=== PATIENT | female | born 1950 | race Caucasian/White ===

== ENCOUNTER 2018-09-16 04:59 | Inpatient (IN) ==
--- NOTE | 2018-08-21 15:50 | PAT Medication Instructions ---
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) STOP taking 2 weeks before surgery (or as soon as possible if surgery is within 2 weeks) Rasheed Oil 1 tab PO QAM DO NOT take the morning of surgery B-complex with vitamin C [Super B 1 tab PO QAM cholecalciferol (vitamin D3) 1,000 unit PO QAM ferrous sulfate, dried [iron] 159 mg PO QAM magnesium 250 mg PO QAM multivitamin 1 tab PO QAM Take morning of surgery With a small sip of water, OTHERWISE NOTHING TO EAT OR DRINK AFTER MIDNIGHT: Thyroid Stim 1 tab PO QAM thyroid (pork) [Quinton Thyroid] 90 mg PO QAM Other Notes If you have any questions please call us at [phone] or [phone] or [phone] or [phone]
--- NOTE | 2018-08-24 07:52 | History & Physical Report ---
Date of Service August 24, 2018 Date of Surgery: 09-16-18 Assessment & Plan (1) Bilateral primary osteoarthritis of knee: Risks and benefits of procedure discussed in detail today, Gely has failed conservative measures and would like to proceed with Bilateral total knee replacements on 09-16-18 @ [facility] as scheduled. will obtain cardiac clearance prior to surgery as well as obtain PATs at [facility]. She will d/c her Eliquis 3 days prior to surgery and resume ASHOK post operatively. She will follow up 2 weeks post op for routine post-operative care and xray, sooner if having any problems. will make arrangements for HHPT at the time of discharge. History of Present Illness Chief Complaint: bilateral knee pain Primary Care Provider: Aleah Segura Ms White is a 67 year old female who complains of bilateral knee pain, is here for pre-op evaluation prior to bilateral total knee replacements scheduled for at [facility] by Dr Elmore. She states her symptoms are chronic and non-traumatic and equal on both sides. she admits to pain, decreased range of motion and intermittent swelling. Her symptoms occur constantly with intermittent worsening. Currently the patient states that the symptoms are moderate-severe. The pain is described as aching, discomforting and throbbing. She states that her symptoms are aggravated by ascending stairs, daily activities including walking and standing as well as first steps while awake. Gely states that the symptoms are relieved by no specific activity. Her current pain is 4/10 bilaterally and 8/10 at its worst. She is experiencing decreased mobility, joint pain, limping, instability, loss of motion, pain, pain after activity and stiffness. Pt. is on Eliquis therapy which limits her NSAID use for pain. She has been treated with previous physical therapy, as well as has received previous Cortisone injection in the past and viscosupplementation, most recently in July of 2017. Allergies Allergy/AdvReac Type Severity Reaction Status Date / Time Sulfa (Sulfonamide AdvReac YEAST Verified 08/17/18 09:00 Antibiotics) INFECTION Home Medications Home Medications Medication Instructions Recorded Confirmed Type B-complex with vitamin C [Super B 1 tab PO QAM 08/17/18 08/17/18 History Complex-Vitamin C] Rasheed Oil 1 tab PO QAM 08/17/18 History Thyroid Stim 1 tab PO QAM 08/17/18 History apixaban [Eliquis] 5 mg PO BID 08/17/18 08/17/18 History cholecalciferol (vitamin D3) 1,000 unit PO QAM 08/17/18 08/17/18 History [Vitamin D3] ferrous sulfate, dried [iron] 159 mg PO QAM 08/17/18 08/17/18 History magnesium 250 mg PO QAM 08/17/18 08/17/18 History multivitamin 1 tab PO QAM 08/17/18 08/17/18 History thyroid (pork) [[place] Thyroid] 90 mg PO QAM 08/17/18 08/17/18 History Past Med/Surg History Medical History Asthma CONTROLLED Atrial fibrillation PAROXYSMAL Hypothyroidism Osteoarthritis Pulmonary HTN "MILD" PER 12/2017 ECHO (PASP 43-48MMHG) Valvular heart disease AVR (2014), MVR (2014), TV ANNULOPLASTY (2014) Surgical History History of heart valve replacement AVR (2014), MVR (2014), TV ANNULOPLASTY (2014); MOST RECENT ECHO 12/2017 History of laparoscopy 2/2 ENDOMETRIOSIS History of lumpectomy "BENIGN" History of tonsillectomy Family History Mother High cholesterol Diabetes Heart attack Social History Current Living Situation: Spouse Other Information That Helps Us Care for You: No Feels Safe at Home: Yes Safety Concerns: Feels Safe At This Time Smoking Status: Never smoker Do You Dip or Chew Tobacco: No Hx Alcohol Use: Yes Alcohol type: other Alcohol Intake Frequency: holidays/ special occasions only Hx Substance Use: No Beliefs That Will Affect Care: None Preferred Language: Turkish Communication Ability: Effective 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 Review of Systems All systems reviewed & are unremarkable except as noted in HPI & below Constitutional: no fever, no chills, no sweats and no fatigue Respiratory: no cough, no dyspnea and no hemoptysis Cardiovascular: no chest pain, no dyspnea and no orthopnea Musculoskeletal: as per Subjective / HPI Integumentary: no rash and no lesions Endocrine: no fatigue Physical Exam 2 Vital Signs (Past 24 Hours): Ht: 5ft 6 inches Wt: 62.6 kg BP: 134/60 Pulse: 90 Constitutional: WD/WN, vitals as above no acute distress Respiratory: normal respiratory effort, lungs clear to auscultation no respiratory distress and does not use accessory muscles Cardiovascular: irregularly irregular rhythm, Grade II/ systolic ejection murmur Gastrointestinal (Abdomen): normal bowel sounds, soft, nontender, no hepatosplenomegaly Musculoskeletal: Bilateral knee Physical exam Overall patient has varus alignment bilaterally, there is no atrophy or ecchymosis noted no erythema or warmth, she does have +1 suprapatellar effusion in both of her knees, she has tenderness to both medial compartments bilaterally. negative patellar apprehension, she does have crepitation noted to both knees with active range of motion. both knees are stable to valgus and varus stress, americo negative, posterior drawer negative. Range of motion right knee 0/5/115, left knee 0/3/115. her lower extremities are neurovascularly intact, calf soft and non tender, DP pulse +2 bilaterally. Results & Data Diagnostic Findings Bilateral Knee X-ray dated 08/04/18 bilateral knee 4 view series confirm advanced degenerative changes to both of her knees, greatest medial compartments and patellofemoral joints overall varus alignment, Xrays showing joint space narrowing, osteophyte formation and subchondral sclerosis to her medial compartments. no acute bony pathology noted , no loose bodies noted.
--- NOTE | 2018-08-24 09:41 | Anesthesiology Consultation ---
Date of Service August 24, 2018 Assessment & Plan (1) Encounter for pre-operative examination: Plan: - Cardio= 08/18/18= "low to intermediate risk for OR.. she will need to be off eliquis for three days prior to OR." Chart Review Chart Review: Acceptable Risk for Surgery and Patient seen in Pre Admission Testing Teaching & Discussion Pre-Anesthesia Teaching/Discussion Notes: Instructed NPO after midnight before surgery,except medications with 15 cc of water. Medication instructions provided according to the PAT guidelines. History Surgery Operation Date: 09/16/18 09:40 Proposed Procedures p Bilateral Total Knee Arthroplasty - Harris Elmore DO Height/Weight Height: 5 ft 6 in Weight: 61.6 kg Allergies Allergy/AdvReac Type Severity Reaction Status Date / Time Sulfa (Sulfonamide AdvReac YEAST Verified 08/17/18 09:00 Antibiotics) INFECTION Medications Home Medications Medication Instructions Recorded Confirmed Last Taken B-complex with vitamin C [Super B 1 tab PO QAM 08/17/18 08/17/18 Unknown Complex-Vitamin C] Rasheed Oil 1 tab PO QAM 08/17/18 Unknown Thyroid Stim 1 tab PO QAM 08/17/18 Unknown apixaban [Eliquis] 5 mg PO BID 08/17/18 08/17/18 Unknown cholecalciferol (vitamin D3) 1,000 unit PO QAM 08/17/18 08/17/18 Unknown [Vitamin D3] ferrous sulfate, dried [iron] 159 mg PO QAM 08/17/18 08/17/18 Unknown magnesium 250 mg PO QAM 08/17/18 08/17/18 Unknown multivitamin 1 tab PO QAM 08/17/18 08/17/18 Unknown thyroid (pork) [Rind[place] Thyroid] 90 mg PO QAM 08/17/18 08/17/18 Unknown Past Medical History Medical History Asthma CONTROLLED Atrial fibrillation PAROXYSMAL History of blood transfusion Hypothyroidism Osteoarthritis Pulmonary HTN "MILD" PER 12/2017 ECHO (PASP 43-48MMHG) Valvular heart disease AVR (2014), MVR (2014), TV ANNULOPLASTY (2014) Past Family History Family History Mother High cholesterol Diabetes Heart attack Past Surgical History Surgical History History of heart valve replacement AVR (2014), MVR (2014), TV ANNULOPLASTY (2014); MOST RECENT ECHO 12/2017 History of laparoscopy 2/2 ENDOMETRIOSIS History of lumpectomy "BENIGN" History of tonsillectomy Past Anesthesia History No Hx of Anesthesia Complications and No Family Hx of Anesthesia Complications History of PONV No Motion Sickness Screening History of Motion Sickness: No Social History Smoking Status: Never smoker Do You Dip or Chew Tobacco: No Hx Alcohol Use: Yes Alcohol type: other alcohol intake frequency: holidays/special occasions only Hx Substance Use: No substance use type: does not use Exercise / Class Metabolic Activity III < 4 Walking/Shop/Light housework Review of Systems URI symptoms improving. Patient denies chest pain, shortness of breath, cough, wheezing. Physical Exam Vital Signs VITALS BP 108/73 P 98 TEMP 97.8 SP02 98%RA RESP 18 PHYSICAL Small chin. Full neck and c-spine range of motion. Full TMJ range of motion. TMD 2.5 finger breaths Mallampati Score 1 Dentition: intact, upper front caps Lungs: clear throughout to auscultation Cardiac: regular rate and rhythm, III/ systolic murmur Spine: normal Carotid arteries: negative bruit Extremities: no edema Testing Electrocardiogram Date: 08/18/18 A. fib with normal mean ventricular response at 97bpm. Chest X-Ray Date: 08/24/18 There are postsurgical changes of midline sternotomy and valvular replacement. The patient is mildly hyperinflated. Echocardiogram Date: 12/30/17 No RWMA. EF 50-55%. Mild PI. Mild to moderate TR s/p TV repair, Mild MR s/p MVR. Mild AI s/p AVR. Mild pulmonary HTN ((PASP 43-48mmhg), Indeterminate DD. Cardiac Catheterization Date: 10/14/15 Operative report for AVR, MVR, TV repair/annuloplasty. Laboratory Results 08/24/18 10:07 Blood Type O Positive 08/24/18 10:02 Antibody Screen NEGATIVE 08/24/18 10:02 PT 10.8 Seconds (9.0-12.0) 08/24/18 10:07 INR 1.1 (0.9-1.1) 08/24/18 10:07 APTT 31.2 Seconds (21.0-31.0) H 08/24/18 10:07 Hemoglobin A1c 5.4 % (4.5-5.6) 08/24/18 10:07 Urine Color Dark Yellow 08/24/18 10:07 Urine Appearance Clear (Clear) 08/24/18 10:07 Urine pH 7.5 (4.5-7.5) 08/24/18 10:07 Ur Specific [place] 1.012 (1.000-1.030) 08/24/18 10:07 Urine Protein Negative (Negative) 08/24/18 10:07 Urine Glucose (UA) Negative (Negative) 08/24/18 10:07 Urine Ketones Trace (Negative) H 08/24/18 10:07 Urine Nitrite Negative (Negative) 08/24/18 10:07 Ur Leukocyte Esterase Negative (Negative) 08/24/18 10:07 08/05/18 WBC 4.1 H/H 13.8/40.6 PLATELETS 157
[2018-08-24 10:44] LABS: INR 1.1 (0.9-1.1); Partial Thromboplastin Ratio 1.2; Partial Thromboplastin Time 31.2 Seconds (21.0-31.0); Prothrombin Time 10.8 Seconds (9.0-12.0)
--- NOTE | 2018-08-24 10:50 | XRay Report ---
XR chest Pre-admission PA/Lat CLINICAL HISTORY: Preoperative chest COMPARISON STUDY: No previous studies for comparison. FINDINGS: There are postsurgical changes of midline sternotomy and valvular replacement. The patient is mildly hyperinflated. There is no failure. There is no focal pulmonary consolidation. There are no pleural effusions.[ IMPRESSION: No active disease in the chest. Electronically signed by: David Bai M.D. 08/24/2018 10:49 AM
[2018-08-24 10:51] LABS: Estimated Average Glucose 108 mg/dl; Hemoglobin A1C 5.4 % (4.5-5.6)
[2018-08-24 12:23] LABS: BUN Creatinine Ratio 21.1 (10-20); Creatinine Clr Calc Pharmacy 60.8 ml/min; Est GFR (African American) 83.4; Est GFR (Non-African American) 71.9
[2018-08-24 12:54] LABS: Appearance Urine Clear (Clear); Bilirubin Urine Negative (Negative); Blood Urine Negative (Negative); Color Urine Dark Yellow; Glucose Urine UA Negative (Negative); Ketones Urine Trace (Negative); Leukocyte Esterase Urine Negative (Negative); Nitrite Urine Negative (Negative); Protein Urine Negative (Negative); Specific Gravity Urine 1.012 (1.000-1.030); Urobilinogen Urine Negative (Negative); pH Urine 7.5 (4.5-7.5)
[2018-09-16] MEDS ORDERED: CEFAZOLIN 1000MG 1,000 MG/7.5 ML SYR IV SCH (06:00)
[2018-09-16] MEDS ORDERED: METOCLOPRAMIDE HCL 10 MG TABLET PO SCH (06:00)
[2018-09-16] MEDS ORDERED: FAMOTIDINE 20 MG TAB PO SCH (06:00)
[2018-09-16] MEDS ORDERED: LR 500ML BOLUS, THEN 15ML/HR IV SCH (06:00)
[2018-09-16] MEDS ORDERED: dexAMETHasone 4 MG TAB PO SCH (06:00)
[2018-09-16] MEDS ORDERED: GABAPENTIN 300 MG PO SCH (06:00)
[2018-09-16] MEDS ORDERED: ACETAMINOPHEN 500 MG TAB PO SCH (06:00)
[2018-09-16] MEDS ORDERED: ROPIVACAINE 0.5% HCL/PF 150 MG, BUPIVACAINE 0.5% MPF 30 ML, EPINEPHrine 30MG/30ML (OR U... INFIL SCH (06:00)
[2018-09-16] MEDS ORDERED: BUPIVACAINE 0.5 % 5 MG/1 ML PF 10ML VIAL ONE (06:26)
[2018-09-16] MEDS ORDERED: ROPIVACAINE 0.5% 5 MG/ML 30 ML VIAL ONE (06:26)
[2018-09-16] MEDS ORDERED: ORTHO JOINT ANESTHETIC ONE (06:35)
[2018-09-16] MEDS ORDERED: BACITRACIN INJ 50,000 UNIT VIAL ONE (06:35)
[2018-09-16] MEDS ORDERED: POVIDONE-IODINE OP SOLN 30 ML BTL ONE (06:35)
[2018-09-16] MEDS ORDERED: ONDANSETRON INJ 2 MG/ML 2 ML VIAL IV PRN (06:52)
[2018-09-16] MEDS ORDERED: PROMETHAZINE HCL 12.5 MG in SODIUM CHLORIDE 0.9% 50 ML IV PRN (06:52)
[2018-09-16] MEDS ORDERED: ePHEDrine sulfate 50 MG/ML AMP IV PRN (06:52)
[2018-09-16] MEDS ORDERED: PHENYLEPHRINE 100MCG/ML 5ML SYR IV PRN (06:52)
[2018-09-16] MEDS ORDERED: fentaNYL citrate 100 MCG/2 ML VIAL IV PRN (06:52)
[2018-09-16] MEDS ORDERED: ATROPINE SULFATE 0.1 MG/ML 10ML SYR IV PRN (06:52)
[2018-09-16] MEDS ORDERED: HYDROmorphone INJ 2 MG/ML SYR/VIAL IV PRN (06:52)
[2018-09-16] MEDS ORDERED: fentaNYL citrate 100 MCG/2 ML VIAL ONE ×5 (06:55→09:17)
[2018-09-16] MEDS ORDERED: MIDAZOLAM HCL 1 MG/ML 2ML VIAL ONE ×2 (06:55→07:09)
--- NOTE | 2018-09-16 07:02 | History & Physical Bridge Note ---
Date of Service September 16, 2018 History & Physical Bridge Note I have examined the patient, reviewed the History & Physical and in the interval since the performance of the History & Physical I have noted the following changes of clinical significance: no changes noted
[2018-09-16] MEDS ORDERED: TRANEXAMIC ACID 1,000 MG in 0.9 % SODIUM CHLORIDE 100 ML IV ONE ×2 (07:15→07:30)
[2018-09-16] MEDS ORDERED: PROPOFOL IV EMULSION 10 MG/ML 20 ML VIAL IV ONE (07:56)
[2018-09-16] MEDS ORDERED: LIDOCAINE HCL 2% 2 ML VIAL/AMP(20MG/ML) INFIL ONE (07:56)
[2018-09-16] MEDS ORDERED: PHENYLEPHRINE 100MCG/ML 5ML SYR ONE (07:56)
[2018-09-16] MEDS ORDERED: ONDANSETRON INJ 2 MG/ML 2 ML VIAL ONE (07:56)
--- NOTE | 2018-09-16 09:05 | Operative Report ---
Post Operative Report Pre & Post Diagnosis Operation Date: 09/16/18 07:00 Pre-Op Diagnosis: Bilateral Knee Primary Osteoarthritis Post-Op Diagnosis: Bilateral Knee Primary Osteoarthritis Procedure Operation Date: 09/16/18 07:00 Actual Procedures p Bilateral Total Knee Arthroplasty(Bilateral) utilizing NexGen journey to non- bloc total knee arthroplasty size right 5 femur 4 tibia 11 polyethylene 32 oval patella left size 5 femur 4 tibia 10 polyethylene 32 oval patella- Harris Elmore DO Surgeon Harris Elmore DO Wirer Maintenance Bharathi CASIANO Estimated Blood Loss 10 Findings Consistent with Post-Op Diagnosis Patient presents with severe end-stage tricompartmental degenerative joint disease bilateral knees bone to bone changes subchondral sclerosis varus alignment osteophytes marginal osteophyte subchondral cystic changes right knee subchondral cystic changes left knee with moderate to large effusion pseudo- ligamentous laxity bilateral knees Specimens Bone and cartilage Drains Medium medium bore Hemovac right medium bore Hemovac left Complications none Disposition Accompanied Patient To Recovery: No Disposition: Recovery Room Indications Patient presents with bilateral severe end-stage DJD failing all attempts at conservative management including physical therapy anti-inflammatories relative rest activity modification corticosteroid injections Visco supplementations bracing physical therapy activity modification patient has the above intraoperative findings with subchondral sclerosis cystic changes marginal osteophytes pseudo-ligamentous laxity moderate to large effusions Description of Procedure After proper prepping and draping of the bilateral lower extremities, an anterior midline incision was made over the region of the extensor extensor mechanism of the left knee. After meticulous hemostasis was obtained and maintained in subcutaneous tissues a medial parapatellar incision was made The patella was subluxed lateralward the medial lateral gutter were cleaned from any hypertrophic synovitis and scar tissue of the distal femoral block was placed and the distal femoral osteotomy cut was made subsequently the chamfers anterior and posterior osteotomy cuts were made utilizing the 4-in-1 block the tibia was subsequently subluxed anteriorward medial and ateral meniscal remnants were excised in their entirety remnants of the anterior and posterior cruciate ligaments were excised in their entirety excellent exposure of the proximal tibia was obtained the tibial osteotomy guide was placed on the proximal tibial osteotomy cut was made once again the knee was irrigated with copious amounts of sterile saline solution the patella was subsequently everted lateralward thickened scar tissue around the patella was removed the patella was subsequently cut utilizing a freehand technique and was drilled prepared for final preparation and placement of patella socially flexion-extension gaps were checked and the equal and symmetric trials were placed to the appropriate femoral and tibial trials with poly-spacer being placed for equal flexion and extension gaps and full range of motion including extension to 0 and flexion to 140 the trial components after having been taken to recovery range of motion was subsequently removed meticulous hemostasis was obtained and maintained subsequently a knee block injection of joint cocktail including ropivacaine 0.5% 150 mg. Bupivacaine 0.5% epinephrine 1-200,030 mL's toradol 30 mg dexamethasone 4 mg ketamine 10 mg clonidine 100 micrograms normal saline solution 30 mg was infiltrated into the soft tissues of the posterior knee medial lateral gutters and periosteal synovium special attention was paid to protect neurovascular structures at all times subsequently trial components having been removed the knee was irrigated with sterile saline solution. debris was removed the proximal tibia was subsequently prepared and was made ready for the placement of the tibial component tibial component was also cemented and tamped into position the femoral component was subsequently placed and cemented in the position the patellar component was subsequently cemented in position because hemostasis once again obtained and maintained wound having been thoroughly irrigated with debridement and debridement lavage was performed as well as a medial parapatellar incision closed with #1 Vicryl in interrupted fashion subcutaneous was closed with #2 Vicryl skin was closed with skin clips Next, an anterior midline incision was made over the region of the extensor extensor mechanism of the right knee. After meticulous hemostasis was obtained and maintained in subcutaneous tissues a medial parapatellar incision was made The patella was subluxed lateralward the medial lateral gutter were cleaned from any hypertrophic synovitis and scar tissue of the distal femoral block was placed and the distal femoral osteotomy cut was made subsequently the chamfers anterior and posterior osteotomy cuts were made utilizing the 4-in-1 block the tibia was subsequently subluxed anteriorward medial and ateral meniscal remnants were excised in their entirety remnants of the anterior and posterior cruciate ligaments were excised in their entirety excellent exposure of the proximal tibia was obtained the tibial osteotomy guide was placed on the proximal tibial osteotomy cut was made once again the knee was irrigated with copious amounts of sterile saline solution the patella was subsequently everted lateralward thickened scar tissue around the patella was removed the patella was subsequently cut utilizing a freehand technique and was drilled prepared for final preparation and placement of patella socially flexion-extension gaps were checked and the equal and symmetric trials were placed to the appropriate femoral and tibial trials with poly-spacer being placed for equal flexion and extension gaps and full range of motion including extension to 0 and flexion to 140 the trial components after having been taken to recovery range of motion was subsequently removed meticulous hemostasis was obtained and maintained subsequently a knee block injection of joint cocktail including ropivacaine 0.5% 150 mg. Bupivacaine 0.5% epinephrine 1-200,030 mL's toradol 30 mg dexamethasone 4 mg ketamine 10 mg clonidine 100 micrograms normal saline solution 30 mg was i nfiltrated into the soft tissues of the posterior knee medial lateral gutters and periosteal synovium special attention was paid to protect neurovascular structures at all times subsequently trial components having been removed the knee was irrigated with sterile saline solution. debris was removed the proximal tibia was subsequently prepared and was made ready for the placement of the tibial component tibial component was also cemented and tamped into position the femoral component was subsequently placed and cemented in the position the patellar component was subsequently cemented in position because hemostasis once again obtained and maintained wound having been thoroughly irrigated with debridement and debridement lavage was performed as well as a medial parapatellar incision closed with #1 Vicryl in interrupted fashion subcutaneous was closed with #2 Vicryl skin was closed with skin clips.. PA-C was necessary for prepping and drapping as well as wound closure of deep fascia Sub cutaneous tissue and skin and was necessary for the case. A sterile compressive dressings were placed, patient was taken to recovery in stable condition of report dictated by Ramírze I attest to the content of the Intraoperative Record and any orders documented therein. Any exceptions are noted below. I attest to the content of the Intraoperative Record and any orders documented therein. Any exceptions are noted below.
[2018-09-16] MEDS ORDERED: ESMOLOL HCL INJ 10 MG/ML 10ML VIAL IV ONE (10:23)
--- NOTE | 2018-09-16 10:23 | XRay Report ---
XR knee RT 2V routine CLINICAL HISTORY: 68 years-old Female presenting with Surgical Post Op. TECHNIQUE: Frontal and crosstable lateral views of the right knee were obtained. COMPARISON: None. FINDINGS: Postsurgical changes of total right knee arthroplasty with patellar resurfacing. Expected intra-artic ular and soft tissue emphysema. No malalignment or periprosthetic fracture. Surgical drain in place. IMPRESSION: Expected postsurgical appearance status post total right knee arthroplasty with patellar resurfacing. Electronically signed by: Supa Welch M.D. 09/16/2018 10:22 AM
--- NOTE | 2018-09-16 10:24 | XRay Report ---
LEFT KNEE 2 VIEWS History: Left total knee arthroplasty. Degenerative arthritis. Postop. FINDINGS: The patient is status post a left total knee arthroplasty. The hardware is intact. No fract ure or dislocation. Surgical drains are in place. IMPRESSION: Left total knee arthroplasty. No evidence for hardware complication. Electronically signed by: Shakeel Mares M.D. 09/16/2018 10:23 AM
[2018-09-16] MEDS ORDERED: BISACODYL 10 MG SUPP PR PRN (11:15)
[2018-09-16] MEDS ORDERED: MAGNESIUM HYDROXIDE SUSP 30 ML UDC PO PRN (11:15)
[2018-09-16] MEDS ORDERED: ALUMINUM/MAGNESIUM SUSP 30 ML UDC PO PRN (11:15)
[2018-09-16] MEDS ORDERED: METOCLOPRAMIDE HCL INJ 5 MG/ML 2 ML VIAL IV PRN (11:15)
[2018-09-16] MEDS ORDERED: NALOXONE HCL 0.4 MG/1 ML VIAL/CARP IV PRN (11:15)
[2018-09-16] MEDS ORDERED: HYDROmorphone INJ 1 MG/ML SYRINGE IV PRN (11:15)
--- NOTE | 2018-09-16 11:35 | Anesthesiology Progress Note ---
Date of Service September 16, 2018 Anesthesia Post Procedure Vital Signs Vital Signs: Temp Pulse Pulse Resp BP BP Pulse Ox 09/16/18 11:31 36.4 C L 119 H 16 93/53 L 99 09/16/18 10:55 37.2 C 16 98/61 L 97 09/16/18 10:45 108 H 16 110/48 L 97 09/16/18 10:41 106 H 15 95/66 L 99 09/16/18 10:40 37.0 C 102 H 90 13 78/55 L 95/66 L 99 09/16/18 10:37 101 H 13 99 09/16/18 10:36 112 H 18 96/68 L 98 09/16/18 10:35 105 H 14 98 09/16/18 10:33 124 H 13 97/63 L 98 09/16/18 10:32 105 H 14 98/62 L 99 09/16/18 10:31 118 H 16 99/69 L 99 09/16/18 10:30 124 H 13 85/57 L 99 09/16/18 10:26 100 H 15 94/63 L 99 09/16/18 10:25 110 H 15 99 09/16/18 10:20 115 H 14 103/56 L 99 09/16/18 10:15 96 H 15 98/66 L 100 09/16/18 10:10 101 H 13 100 09/16/18 10:06 109 H 14 100 09/16/18 10:05 107 H 14 100/71 100 09/16/18 10:01 111 H 14 100/59 L 100 09/16/18 10:00 101 H 13 100 09/16/18 09:55 109 H 15 82/64 L 100 09/16/18 09:50 123 H 17 112/64 100 09/16/18 09:49 14 103/69 100 09/16/18 09:48 36.5 C 128 H 14 103/69 100 09/16/18 09:47 100 09/16/18 05:58 36.8 C 102 H 20 146/90 H 99 Pain Intensity Left Knee: Pain Intensity: 0 Right Knee: Pain Intensity: 0 Notes Mental Status: alert / awake / arousable Patient Amnestic to Procedure: Yes Nausea / Vomiting: adequately controlled Pain: adequately controlled Airway Patency, RR, SpO2: stable & adequate BP & HR: stable & adequate Neuraxial Anesthesia: was administered and sensory block is resolving Anesthetic Complications: no major complications apparent Notes: Pt awake, doing well, no complaints. HR at baseline. Improved after esmolol.
[2018-09-16] MEDS: SODIUM CHLORIDE 0.9% 1000ML 1,000 ML IV SCH ×3 (12:56→23:11)
[2018-09-16] MEDS: KETOROLAC TROMETHAMINE 15 MG/ML VIAL IV SCH ×2 (12:58→17:42)
[2018-09-16] MEDS: ACETAMINOPHEN 500 MG TAB PO SCH ×2 (13:51→22:06)
[2018-09-16] MEDS: CEFAZOLIN 1000MG 1,000 MG/7.5 ML SYR IV SCH (15:46)
--- NOTE | 2018-09-16 18:35 | Internal Medicine Consult Note ---
Date of Consultation September 16, 2018 Assessment & Plan (1) Atrial fibrillation: Patient's mild tachycardia is expected in the postoperative state likely physiologic and also some volume loss she will be continue to be hydrated will not employ rate controlling medications unless were routinely above 110 orthopedics has decided to initiate anticoagulation once again on 09/17 I agree with this (2) History of heart valve replacement: Patient has faint heart murmurs but they are there is no significant signs of heart failure or valve incompetence (3) Hypothyroidism: Patient is maintained on [place] Thyroid History of Present Illness Attending Physician: Harris Elmore DO History of Present Illness Patient presents for an elective bilateral knee replacement by Dr. Brandyn Elmore. She is a known history of atrial fibrillation and has had mitral and aortic valve repairs and a tricuspid valve annuloplasty. Patient is chronically anticoagulated with Eliquis due to her history of atrial fibrillation as an outpatient which is not controlled by any rate controlling medications. She al so takes some thyroid medicine. Postoperatively she is having some mildly elevated heart rates but otherwise was in good condition had no complaints or problems at the bedside her pain seem well controlled Allergies Allergy/AdvReac Type Severity Reaction Status Date / Time Sulfa (Sulfonamide AdvReac YEAST Verified 09/16/18 05:49 Antibiotics) INFECTION Home Medications Home Medications Medication Instructions Recorded Confirmed Type B-complex with vitamin C [Super B 1 tab PO QAM 08/17/18 09/16/18 History Complex-Vitamin C] Rasheed Oil 1 tab PO QAM 08/17/18 History Thyroid Stim 1 tab PO QAM 08/17/18 History apixaban [Eliquis] 5 mg PO BID 08/17/18 09/16/18 History cholecalciferol (vitamin D3) 1,000 unit PO QAM 08/17/18 09/16/18 History [Vitamin D3] iron 159 mg PO QAM 08/17/18 09/16/18 History magnesium 250 mg PO QAM 08/17/18 09/16/18 History multivitamin 1 tab PO QAM 08/17/18 09/16/18 History thyroid (pork) [[place] Thyroid] 90 mg PO QAM 08/17/18 09/16/18 History Patient History Medical History Hypothyroidism Asthma CONTROLLED Atrial fibrillation PAROXYSMAL History of blood transfusion Hypothyroidism Osteoarthritis Pulmonary HTN "MILD" PER 12/2017 ECHO (PASP 43-48MMHG) Valvular heart disease AVR (2015), MVR (2014), TV ANNULOPLASTY (2014) Surgical History History of heart valve replacement AVR (2014), MVR (2014), TV ANNULOPLASTY (2014); MOST RECENT ECHO 12/2017 History of laparoscopy 2/2 ENDOMETRIOSIS History of lumpectomy "BENIGN" History of tonsillectomy Family History Mother High cholesterol Diabetes Heart attack Social History Communication Ability: Effective Beliefs That Will Affect Care: None marital status: Current Living Situation: Spouse Other Information That Helps Us Care for You: No Feels Safe at Home: Yes Safety Concerns: Feels Safe At This Time Smoking Status: Never smoker Hx Alcohol Use: Yes Hx Substance Use: No Review of Systems ROS: well nourished well developed. No double vision blurry vision No problems with speech or swallowing No palpitations, chest pain or pressure patient cannot since palpitations generally No Wheezing or breathing issues No abdominal pain nausea vomiting diarrhea changes in appetite or weight No burning urine urine frequency or changes in color Patient is very little joint pain at this time of evaluation No skin rashes or oral lesions No unusual bruising or bleeding No focused back pain or numbness or loss of strength No changes in memory or confusion Physical Exam Vital Signs (Past 24 Hours): Last Vital Signs Temp 36.5 C 09/16/18 15:50 Pulse 108 H 09/16/18 15:50 Resp 15 09/16/18 15:50 BP 112/69 09/16/18 15:50 Pulse Ox 96 09/16/18 15:50 The patient appeared well nourished and normally developed. Vital signs as documented. Head exam is unremarkable. normocephalic, atraumatic Neck is without jugular venous distension, thyromegaly, or lymphademopathy Lungs are clear to auscultation and percussion. Cardiac exam reveals irregularly irregular but rate controlled rhythm. First and second heart sounds normal. Abdominal exam reveals normal bowel sounds, no masses, no organomegaly Extremities are nonedematous and both pedal pulses are present Neurologic exam is A&Ox3, no focal deficits, strength is equal bilateral Psychologically seems neither anxious or depressed Skin is warm Dry without bruises her knee incisions were not inspected because they were recently dressed
[2018-09-16] MEDS: SENNA 8.6 MG TAB PO SCH (20:37)
[2018-09-16] MEDS: DOCUSATE SODIUM 100 MG CAP PO SCH (20:37)
[2018-09-17] MEDS: CEFAZOLIN 1000MG 1,000 MG/7.5 ML SYR IV SCH ×2 (00:01→07:50)
[2018-09-17] MEDS: KETOROLAC TROMETHAMINE 15 MG/ML VIAL IV SCH ×2 (00:01→06:09)
[2018-09-17] MEDS: OXYCODONE HCL IR 5 MG TAB (IMMEDIATE RELEASE) PO PRN ×4 (00:04→22:10)
[2018-09-17] MEDS: ACETAMINOPHEN 500 MG TAB PO SCH ×3 (06:08→21:27)
[2018-09-17] MEDS: ARMOUR THYROID 30 MG TAB PO SCH (06:51)
[2018-09-17 07:39] LABS: Hematocrit (blood only) 31.8 % (37-47); Hemoglobin 10.8 g/dL (12.0-16.0); Mean Corpuscular Volume 97.8 fL (80-100); Platelet Count 139 K/uL (130-400); RDW Coefficient of Variation 13.3 % (11.5-14.5); RDW Standard Deviation 47.7 fL (36.4-46.3); Red Blood Count 3.25 M/uL (4.2-5.4); White Blood Count 13.95 K/uL (4.8-10.8)
--- NOTE | 2018-09-17 08:05 | Orthopedic Progress Note ---
Date of Service September 17, 2018 Assessment & Plan (1) Status post total bilateral knee replacement: POD #1 s/p Bilateral TKAs pt/ot dvt proph with MORTEZA/SCD/resume her Eliquis plan for d/c home with home health when stable Per Medicine: (1) Atrial fibrillation: Patient's mild tachycardia is expected in the postoperative state likely physiologic and also some volume loss she will be continue to be hydrated will not employ rate controlling medications unless were routinely above 110 orthopedics has decided to initiate anticoagulation once again on 09/17 I agree with this (2) History of heart valve replacement: Patient has faint heart murmurs but they are there is no significant signs of heart failure or valve incompetence (3) Hypothyroidism: Patient is maintained on [place] Thyroid Subjective POD #1 s/p Bilateral TKA Constitutional: no fever, no chills and no sweats Respiratory: no cough and no dyspnea Cardiovascular: no chest pain, no dyspnea and no orthopnea Gastrointestinal: no nausea and no vomiting Physical Exam Vital Signs (Past 24 Hours): Last Vital Signs Temp 36.5 C 09/17/18 07:16 Pulse 87 09/17/18 07:16 Resp 17 09/17/18 07:16 BP 105/57 L 09/17/18 07:16 Pulse Ox 99 09/17/18 07:16 Constitutional: WD/WN, vitals as above no acute distress Musculoskeletal: Bilateral lower extremities: are NVDI, calfs SNT, negative leona signs. DP palpable, able to wiggle toes/ankle movement without difficulty. both dressings are clean dry and intact. Results & Data Laboratory Results Laboratory Results WBC 13.95 K/uL (4.8-10.8) H 09/17/18 07:23 RBC 3.25 M/uL (4.2-5.4) L 09/17/18 07:23 Hgb 10.8 g/dL (12.0-16.0) L 09/17/18 07:23 Hct 31.8 % (37-47) L 09/17/18 07:23 MCV 97.8 fL (80-100) 09/17/18 07:23 MCH 33.2 pg (25-34) 09/17/18 07:23 MCHC 34.0 g/dL (32-36) 09/17/18 07:23 RDW Std Deviation 47.7 fL (36.4-46.3) H 09/17/18 07:23 RDW Coeff of Rae 13.3 % (11.5-14.5) 09/17/18 07:23 Plt Count 139 K/uL (130-400) 09/17/18 07:23 MPV 9.0 fL (7.4-10.4) 09/17/18 07:23 PT 10.8 Seconds (9.0-12.0) 08/24/18 10:07 INR 1.1 (0.9-1.1) 08/24/18 10:07 APTT 31.2 Seconds (21.0-31.0) H 08/24/18 10:07 PTT Ratio 1.2 08/24/18 10:07 Sodium 140 mmol/L (136-145) 08/24/18 10:07 Potassium 4.0 mmol/L (3.5-5.1) 08/24/18 10:07 Chloride 105 mmol/L (98-107) 08/24/18 10:07 Carbon Dioxide 30 mmol/L (21-32) 08/24/18 10:07 Anion Gap 5.0 (3-11) 08/24/18 10:07 BUN 18 mg/dl (7-18) 08/24/18 10:07 Creatinine 0.84 mg/dl (0.6-1.2) 08/24/18 10:07 Est Cr Clr Drug Dosing 60.8 ml/min 08/24/18 10:07 Est GFR ( Amer) 83.4 08/24/18 10:07 Est GFR (Non-Af Amer) 71.9 08/24/18 10:07 BUN/Creatinine Ratio 21.1 (10-20) H 08/24/18 10:07 Glucose 94 mg/dl (70-99) 08/24/18 10:07 Estimat Average Glucose 108 mg/dl 08/24/18 10:07 Hemoglobin A1c 5.4 % (4.5-5.6) 08/24/18 10:07 Calcium 9.0 mg/dl (8.5-10.1) 08/24/18 10:07 Albumin 4.0 gm/dl (3.4-5.0) 08/24/18 10:07 Urine Color Dark Yellow 08/24/18 10:07 Urine Appearance Clear (Clear) 08/24/18 10:07 Urine pH 7.5 (4.5-7.5) 08/24/18 10:07 Ur Specific [place] 1.012 (1.000-1.030) 08/24/18 10:07 Urine Protein Negative (Negative) 08/24/18 10:07 Urine Glucose (UA) Negative (Negative) 08/24/18 10:07 Urine Ketones Trace (Negative) H 08/24/18 10:07 Urine Blood Negative (Negative) 08/24/18 10:07 Urine Nitrite Negative (Negative) 08/24/18 10:07 Urine Bilirubin Negative (Negative) 08/24/18 10:07 Urine Urobilinogen Negative (Negative) 08/24/18 10:07 Ur Leukocyte Esterase Negative (Negative) 08/24/18 10:07 Blood Type O Positive 08/24/18 10:02 Antibody Screen NEGATIVE 08/24/18 10:02 Diagnostic Findings Bilateral knee post-op x-ray: 2 VIEWS both knees: History: bilateral total knee arthroplasty. Degenerative arthritis. Postop. FINDINGS: The patient is status post bilateral total knee arthroplasty. The hardware is intact. No fracture or dislocation. Surgical drains are in place. IMPRESSION: s/p Bilateral total knee arthroplasty. No evidence for hardware complication.
[2018-09-17 08:13] LABS: Albumin Level 2.9 gm/dl (3.4-5.0); Bilirubin Direct 0.2 mg/dl (0-0.2); Calcium 8.1 mg/dl (8.5-10.1); Creatinine Clr Calc Pharmacy 63.8 ml/min; Est GFR (African American) 89.1; Est GFR (Non-African American) 76.9; Potassium 4.3 mmol/L (3.5-5.1)
[2018-09-17 08:16] LABS: Bilirubin,Total 0.8 mg/dl (0.2-1); Total Protein 5.6 gm/dl (6.4-8.2)
[2018-09-17] MEDS: MULTIVITAMIN TAB PO SCH (09:05)
[2018-09-17] MEDS: DOCUSATE SODIUM 100 MG CAP PO SCH ×2 (09:05→21:26)
[2018-09-17] MEDS: CHOLECALCIFEROL 1,000 UNITS TAB PO SCH (09:05)
[2018-09-17] MEDS: APIXABAN 5 MG TABLET PO SCH ×2 (09:07→21:26)
--- NOTE | 2018-09-17 09:30 | Anesthesiology Progress Note ---
Date of Service September 17, 2018 Anesthesia Post Procedure Vital Signs Vital Signs: Temp Pulse Pulse Resp BP BP BP 09/17/18 07:16 36.5 C 87 17 105/57 L 09/17/18 03:05 36.4 C L 87 16 98/62 L 09/16/18 23:00 37 C 97 H 16 101/58 L 09/16/18 20:00 36.7 C 107 H 15 100/58 L 09/16/18 15:50 36.5 C 108 H 15 112/69 09/16/18 13:55 36.5 C 106 H 16 91/58 L 09/16/18 12:55 36.5 C 96 H 16 92/57 L 09/16/18 11:57 36.6 C 113 H 16 102/54 L 09/16/18 11:31 36.4 C L 119 H 16 93/53 L 09/16/18 10:55 37.2 C 16 98/61 L 09/16/18 10:45 108 H 16 110/48 L 09/16/18 10:41 106 H 15 95/66 L 09/16/18 10:40 37.0 C 102 H 90 13 78/55 L 95/66 L 09/16/18 10:37 101 H 13 09/16/18 10:36 112 H 18 96/68 L 09/16/18 10:35 105 H 14 09/16/18 10:33 124 H 13 97/63 L 09/16/18 10:32 105 H 14 98/62 L 09/16/18 10:31 118 H 16 99/69 L 09/16/18 10:30 124 H 13 85/57 L 09/16/18 10:26 100 H 15 94/63 L 09/16/18 10:25 110 H 15 09/16/18 10:20 115 H 14 103/56 L 09/16/18 10:15 96 H 15 98/66 L 09/16/18 10:10 101 H 13 09/16/18 10:06 109 H 14 09/16/18 10:05 107 H 14 100/71 09/16/18 10:01 111 H 14 100/59 L 09/16/18 10:00 101 H 13 09/16/18 09:55 109 H 15 82/64 L 09/16/18 09:50 123 H 17 112/64 09/16/18 09:49 14 103/69 09/16/18 09:48 36.5 C 128 H 14 103/69 09/16/18 09:47 Pulse Ox 09/17/18 07:16 99 09/17/18 03:05 98 09/16/18 23:00 98 09/16/18 20:00 91 09/16/18 15:50 96 09/16/18 13:55 100 09/16/18 12:55 100 09/16/18 11:57 99 09/16/18 11:31 99 09/16/18 10:55 97 09/16/18 10:45 97 09/16/18 10:41 99 09/16/18 10:40 99 09/16/18 10:37 99 09/16/18 10:36 98 09/16/18 10:35 98 09/16/18 10:33 98 09/16/18 10:32 99 09/16/18 10:31 99 09/16/18 10:30 99 09/16/18 10:26 99 09/16/18 10:25 99 09/16/18 10:20 99 09/16/18 10:15 100 09/16/18 10:10 100 09/16/18 10:06 100 09/16/18 10:05 100 09/16/18 10:01 100 09/16/18 10:00 100 09/16/18 09:55 100 09/16/18 09:50 100 09/16/18 09:49 100 09/16/18 09:48 100 09/16/18 09:47 100 Pain Intensity Left Knee: Pain Intensity: 8 Right Knee: Pain Intensity: 8 Notes Mental Status: alert / awake / arousable and participated in evaluation Patient Amnestic to Procedure: Yes Nausea / Vomiting: adequately controlled Pain: adequately controlled Airway Patency, RR, SpO2: stable & adequate Hydration State: stable & adequate Neuraxial Anesthesia: was administered and sensory block is resolving Anesthetic Complications: no major complications apparent and Pt Satisfied with anesthetic care
[2018-09-17] MEDS: ONDANSETRON INJ 2 MG/ML 2 ML VIAL IV PRN (17:46)
--- NOTE | 2018-09-17 18:09 | Hospitalist Progress Note ---
Date of Service September 17, 2018 Assessment & Plan (1) Atrial fibrillation: Patient's mild tachycardia has resolved she will be restarted on her anticoagulation on 09/17 progressing well postoperatively (2) History of heart valve replacement: Patient remains with faint heart murmurs but they are there is no significant signs of heart failure or valve incompetence (3) Hypothyroidism: Patient is maintained on [place] Thyroid Subjective I have observed the patient doing physical therapy the bedside she is doing much better than I would expect having bilateral total knee replacements she has no other complaints or problems no chest pain or pressure shortness of breath she is having some can some constipation as would be expected in some minor knee pain which is controlled Physical Exam Vital Signs (Past 24 Hours): Last Vital Signs Temp 36.7 C 09/17/18 15:24 Pulse 92 H 09/17/18 15:24 Resp 20 09/17/18 15:24 BP 137/82 09/17/18 15:24 Pulse Ox 98 09/17/18 15:24 Constitutional: well developed and average body habitus Eyes: no conjunctival abnormality and no scleral abnormality Neck: normal visual inspection and trachea midline Respiratory: normal respiratory effort; no respiratory distress Auscultation: lungs clear to auscultation bilaterally Cardiovascular: Rate/Rhythm: + abnormal rhythm and not tachycardic Gastrointestinal (Abdomen): normal bowel sounds, soft, nontender, no hepatosplenomegaly
[2018-09-17] MEDS: SENNA 8.6 MG TAB PO SCH (21:27)
[2018-09-18] MEDS: OXYCODONE HCL IR 5 MG TAB (IMMEDIATE RELEASE) PO PRN ×3 (02:17→14:06)
[2018-09-18] MEDS: ONDANSETRON INJ 2 MG/ML 2 ML VIAL IV PRN (06:01)
[2018-09-18] MEDS: ARMOUR THYROID 30 MG TAB PO SCH (06:04)
[2018-09-18] MEDS: ACETAMINOPHEN 500 MG TAB PO SCH ×2 (06:35→14:05)
--- NOTE | 2018-09-18 07:13 | Orthopedic Progress Note ---
Date of Service September 18, 2018 Assessment & Plan (1) Status post total bilateral knee replacement: POD #2 s/p Bilateral TKAs pt/ot dvt proph with MORTEZA/SCD/resume her Eliquis plan for d/c home with home health after PT today Per Medicine: (1) Atrial fibrillation: Patient's mild tachycardia is expected in the postoperative state likely physiologic and also some volume loss she will be continue to be hydrated will not employ rate controlling medications unless were routinely above 110 orthopedics has decided to initiate anticoagulation once again on 09/17 I agree with this (2) History of heart valve replacement: Patient has faint heart murmurs but they are there is no significant signs of heart failure or valve incompetence (3) Hypothyroidism: Patient is maintained on [place] Thyroid Subjective POD #2 s/p Bilateral TKA denies CP/SOB, denies Fever/Chills. mildly upset stomach this am but states that is normal for her at home. Musculoskeletal: as per Subjective / HPI Physical Exam Vital Signs (Past 24 Hours): Last Vital Signs Temp 36.4 C L 09/18/ 07:03 Pulse 106 H 09/18/ 07:03 Resp 17 09/18/18 07:03 BP 108/71 09/18/18 07:03 Pulse Ox 98 09/18/18 07:03 Constitutional: WD/WN, vitals as above Musculoskeletal: bilateral lower extremities- NVDI, calfs SNT, negative leona signs. DP palpable, able to wiggle toes/ankle movement without difficulty. Picos intact bilaterally. expected post-operative bruising noted.
--- NOTE | 2018-09-18 07:32 | Discharge Summary ---
Date of Service Date of Discharge: September 18, 2018 Date of admission: 09/16/18 Admission HPI Per Admitting Provider Ms White is a 67 year old female who complains of bilateral knee pain, is here for pre-op evaluation prior to bilateral total knee replacements scheduled for 09-16-18 at [facility] [address] Dr Elmore. She states her symptoms are chronic and non-traumatic and equal on both sides. she admits to pain, decreased range of motion and intermittent swelling. Her symptoms occur constantly with intermittent worsening. Currently the patient states that the symptoms are moderate-severe. The pain is described as aching, discomforting and throbbing. She states that her symptoms are aggravated by ascending stairs, daily activities including walking and standing as well as first steps while awake. Gely states that the symptoms are relieved by no specific activity. Her c urrent pain is 4/10 bilaterally and 8/10 at its worst. She is experiencing decreased mobility, joint pain, limping, instability, loss of motion, pain, pain after activity and stiffness. Pt. is on Eliquis therapy which limits her NSAID use for pain. She has been treated with previous physical therapy, as well as has received previous Cortisone injection in the past and viscosupplementation, most recently in July of 2017. Principal Diagnosis bilateral knee osteoarthritis Discharge Exam Constitutional WD/WN, vitals as above Musculoskeletal bilateral legs: NVDI, calf SNT, negative leona sign. DP palpable, able to wiggle toes/ankle movement without difficulty. BRENTON dressings intact. expected post- operative bruising noted. Discharge Data Allergies Allergy/AdvReac Type Severity Reaction Status Date / Time Sulfa (Sulfonamide AdvReac YEAST Verified 09/16/18 05:49 Antibiotics) INFECTION Consultations 09/16/18 11:15 Consult Case Management - Discharge Planning Routine 09/16/18 14:52 Consult Medical [Consult Internal Medicine] Routine Procedures Performed Operation Date: 09/16/18 07:00 Actual Procedures p Bilateral Total Knee Arthroplasty(Bilateral) - Harris Elmore DO Ordered Studies 09/16/18 05:00 US - OR guided needle placemen Routine Hospital Course (1) Status post total bilateral knee replacement: POD #2 s/p Bilateral TKAs pt/ot dvt proph with MORTEZA/SCD/resume her Eliquis plan for d/c home with home health after PT today Per Medicine: (1) Atrial fibrillation: Patient's mild tachycardia is expected in the postoperative state likely physiologic and also some volume loss she will be continue to be hydrated will not employ rate controlling medications unless were routinely above 110 orthopedics has decided to initiate anticoagulation once again on 09/17 I agree with this (2) History of heart valve replacement: Patient has faint heart murmurs but they are there is no significant signs of heart failure or valve incompetence (3) Hypothyroidism: Patient is maintained on Boron Thyroid Patient was a same day admission after undergoing bilateral TKAs . She tolerated the procedure well. Post-operatively, her activity was progressed and well tolerated. Please refer to daily progress notes and PT notes for complete details. After exam on 09/18/18, patient felt to be stable for discharge home with HHPT. Patient will f/u in the office in 2 weeks for further evaluation including x-rays and incision check, sooner if having any issues or concerns. Below are pertinent labs/studies during their hospital stay: Laboratory Results WBC 13.95 K/uL (4.8-10.8) H 09/17/18 07:23 RBC 3.25 M/uL (4.2-5.4) L 09/17/18 07:23 Hgb 10.8 g/dL (12.0-16.0) L 09/17/18 07:23 Hct 31.8 % (37-47) L 09/17/18 07:23 MCV 97.8 fL (80-100) 09/17/18 07:23 MCH 33.2 pg (25-34) 09/17/18 07:23 MCHC 34.0 g/dL (32-36) 09/17/18 07:23 RDW Std Deviation 47.7 fL (36.4-46.3) H 09/17/18 07:23 RDW Coeff of Rae 13.3 % (11.5-14.5) 09/17/18 07:23 Plt Count 139 K/uL (130-400) 09/17/18 07:23 MPV 9.0 fL (7.4-10.4) 09/17/18 07:23 PT 10.8 Seconds (9.0-12.0) 08/24/18 10:07 INR 1.1 (0.9-1.1) 08/24/18 10:07 APTT 31.2 Seconds (21.0-31.0) H 08/24/18 10:07 PTT Ratio 1.2 08/24/18 10:07 Sodium 141 mmol/L (136-145) 09/17/18 07:23 Potassium 4.3 mmol/L (3.5-5.1) 09/17/18 07:23 Chloride 110 mmol/L (98-107) H 09/17/18 07:23 Carbon Dioxide 27 mmol/L (21-32) 09/17/18 07:23 Anion Gap 4.0 (3-11) 09/17/18 07:23 BUN 15 mg/dl (7-18) 09/17/18 07:23 Creatinine 0.79 mg/dl (0.6-1.2) 09/17/18 07:23 Est Cr Clr Drug Dosing 63.8 ml/min 09/17/18 07:23 Est GFR ( Amer) 89.1 09/17/18 07:23 Est GFR (Non-Af Amer) 76.9 09/17/18 07:23 BUN/Creatinine Ratio 19.0 (10-20) 09/17/18 07:23 Glucose 96 mg/dl (70-99) 09/17/18 07:23 Estimat Average Glucose 108 mg/dl 08/24/18 10:07 Hemoglobin A1c 5.4 % (4.5-5.6) 08/24/18 10:07 Calcium 8.1 mg/dl (8.5-10.1) L 09/17/18 07:23 Total Bilirubin 0.8 mg/dl (0.2-1) 09/17/18 07:23 Direct Bilirubin 0.2 mg/dl (0-0.2) 09/17/18 07:23 AST 18 U/L (15-37) 09/17/18 07:23 ALT 25 U/L (12-78) 09/17/18 07:23 Alkaline Phosphatase 54 U/L (45-117) 09/17/18 07:23 Total Protein 5.6 gm/dl (6.4-8.2) L 09/17/18 07:23 Albumin 2.9 gm/dl (3.4-5.0) L 09/17/18 07:23 Urine Color Dark Yellow 08/24/18 10:07 Urine Appearance Clear (Clear) 08/24/18 10:07 Urine pH 7.5 (4.5-7.5) 08/24/18 10:07 Ur Specific Pilgrim 1.012 (1.000-1.030) 08/24/18 10:07 Urine Protein Negative (Negative) 08/24/18 10:07 Urine Glucose (UA) Negative (Negative) 08/24/18 10:07 Urine Ketones Trace (Negative) H 08/24/18 10:07 Urine Blood Negative (Negative) 08/24/18 10:07 Urine Nitrite Negative (Negative) 08/24/18 10:07 Urine Bilirubin Negative (Negative) 08/24/18 10:07 Urine Urobilinogen Negative (Negative) 08/24/18 10:07 Ur Leukocyte Esterase Negative (Negative) 08/24/18 10:07 Blood Type O Positive 08/24/18 10:02 Antibody Screen NEGATIVE 08/24/18 10:02 Total Time Total Time Spent Total Time Spent (In Minutes): 20 Total Time Includes: Examination of the Patient, Discharge Planning and Medication Reconciliation Discharge Plan Discharge Items Patient Disposition: Home - Home Health Services Reason For Visit: BILATERAL KNEE OSTEOARTHRITIS Discharge Diagnosis: bilateral total knee replacements Condition: Good Discharge Goals: Decrease discomfort, Improve function and Increase independence Activity: Per 'Additional Instructions' section Lifting: Wait until after follow-up appointment Driving/Machine Use Comment: no driving until cleared by your physician Weightbearing: Left weightbearing and Right weightbearing Weightbearing Comment: WBAT with walker both legs Non-emergency contact: Primary Care Provider and Surgeon Call non-emergency contact if: you have any medication questions, your temperature is above 101.5, your wound has increased redness, your wound has increased drainage and your wound pain has increased Follow-up/Referrals: Aleah Segura M.D. [Primary Care Provider] - Diet: Regular Addtl Provider Instructions: ACTIVITY RECOMMENDATIONS: SELF CARE INSTRUCTIONS AFTER TOTAL KNEE REPLACEMENT A. You may need to continue a physical therapy program after discharge from the hospital. There are several options available to you. Your doctor will assist you in selecting the best one for you. 1. An out-patient facility 2 to 3 times a week for therapy or home therapy. 2. Continue working on all exercises taught to you in the hospital. Your goals should be to increase bending of your knee to 90 degrees and beyond and to fully straighten your knee. B. You may progress at your own pace from walking with a walker or crutches to a cane; then to no assistive devices. C. Make walking a part of your daily routine. Be up as much as comfortable with rest periods throughout the day. Rest with leg elevation is very important. Use the ice wrap frequently for the first 3-4 weeks. D. There are no restrictions on activities. You may ride in a car, shop, participate in motor coach supervisor and all social activities. E. Wear the long elastic stockings (MORTEZA hose) 20 hours a day for 2 weeks after surgery. They can be removed several times a day for laundering and for a bath. F. You may shower, no tub baths until cleared by your doctor. SPECIAL CARE INSTRUCTIONS: VERY IMPORTANT TO READ AND REVIEW A. There are a few signs you need to watch for after you are home. Call [facility] if you notice any of the followin. Increased severe knee pain. Some pain is expected especially when you exercise. 2. Increased swelling in your leg or knee; pain or swelling of the calf muscle in either lower leg. 3. Any fluid drainage from the incision. 4. Shortness of breath or chest pain. B. Please call [facility] at if you have any concerns or questions about your operation or recovery. The doctor or his nurse will return your call promptly. C. You must take antibiotics before dental work, bladder, bowel or other surgery. Your doctor will provide you with a permanent care to carry describing this precaution. IMPORTANT: * REMEMBER TO TAKE ASPIRIN, 81 MG, TWICE DAILY FOR 4 WEEKS UNLESS OTHERWISE DIRECTED. THIS IS YOUR BLOOD THINNER. * HIGH RISK PATIENTS MAY BE PRESCRIBED A STRONGER BLOOD THINNER. THIS WILL BE PROVIDED AT DISCHARGE. * CALL IF INCREASED PAIN, REDNESS, DRAINAGE OR FEVER GREATER THAT 101. * WEAR MORTEZA HOSE 20 HOURS PER DAY FOR 2 WEEKS. * BRENTON Dressing- This is a large suction dressing covering your incision. This will help pull any excess drainage from the wound and allow your incision to heal properly. You may shower with this if you can keep the unit outside of the shower. If any bleeding or leakage is noted please call your doctor's o ffice. This will remain on your incision for 7 days and then should be removed. This can be done yourself or by the home nursing staff if applicable. The entire unit is disposable once removed. Once removed, keep incision clean and dry. If redness or drainage is noted, please call your surgeon. DERMABOND Prineo- This is a mesh tape dressing that is covered with glue. It should remain in place until the incision is properly healed, usually 10-14 days. This dressing is designed to naturally slough off. You may trim the excess mesh tape as it peels off. Incision may be briefly wet in a shower. Dry immediately by blotting with a clean, dry towel. Do not bath or swim until instructed by your doctor. Do not scratch, rub, or pick at the dressing. Do not apply any topical ointments or lotions until dressing is completely removed and/or instructed by your doctor. There may be a small piece of suture material at one end of your incision. Do not pull or trim this. If it is bothersome or catching on clothing, you may cover it with a band-aid. FOLLOW UP VISIT: If appointment is not already scheduled: Please call [facility] to make a follow-up appointment for 2 weeks after your surgery at . Prescriptions: New acetaminophen [Pain Reliever] 500 mg Tablet 1,000 mg PO Q8 14 Days Qty: 84 RF: 0 docusate sodium 100 mg Capsule 100 mg PO BID 10 Days Qty: 20 RF: 0 oxycodone 5 mg Tablet 5 - 10 mg PO Q6H PRN (Reason: pain) Qty: 30 RF: 0 cefadroxil 500 mg capsule 500 mg PO BID 10 Days Qty: 20 RF: 0 ondansetron HCl [Zofran] 8 mg tablet 8 mg PO Q8H PRN (Reason: nausea and vomiting) 1 Days Qty: 20 RF: 0 Continued multivitamin Tablet 1 tab PO QAM RF: 0 thyroid (pork) [Boron Thyroid] 90 mg Tablet 90 mg PO QAM RF: 0 Eliquis 5 mg Tablet 5 mg PO BID RF: 0 magnesium 250 mg Tablet 250 mg PO QAM RF: 0 cholecalciferol (vitamin D3) [Vitamin D3] 1,000 unit Capsule 1,000 unit PO QAM RF: 0 B-complex with vitamin C [Super B Complex-Vitamin C] Tablet 1 tab PO QAM RF: 0 iron 159 mg (45 mg iron) Tablet Extended Release 159 mg PO QAM RF: 0 Thyroid Stim 1 tab PO QAM RF: 0 Discontinued Rasheed Oil 1 tab PO QAM RF: 0 Stand-Alone Forms: [facility] Discharge Orders: Discharge Order (Routine); Ordered 09/18/18 Ordered By: Bharathi Rivera Admission Data Admit Date/Time: 09/16/18 09:50 Attending Provider: Harris Elmore Admit Provider: Harris Elmore Primary Care Provider: Aleah Segura Other Providers: Harris Balbuena Service: Surgical Services Other Pending Studies at Discharge: No
[2018-09-18] MEDS: MULTIVITAMIN TAB PO SCH (08:25)
[2018-09-18] MEDS: CHOLECALCIFEROL 1,000 UNITS TAB PO SCH (08:25)
[2018-09-18] MEDS: DOCUSATE SODIUM 100 MG CAP PO SCH (08:25)
[2018-09-18] MEDS: APIXABAN 5 MG TABLET PO SCH (08:26)
== END 2018-09-18 15:03 | disposition home health service (06) | DRG 462 ==
LOC: ASU 04:59 → 3E 09:50
DX: Z79.899 Other long term (current) drug therapy; Z79.01 Long term (current) use of anticoagulants; I48.0 Paroxysmal atrial fibrillation; M17.0 Bilateral primary osteoarthritis of knee; E03.9 Hypothyroidism, unspecified